=== PATIENT | female | born 1965 | race Caucasian/White ===

== ENCOUNTER 2020-11-03 15:20 | Emergency (ER) | payer OTHER ==
[~2020-11-03] VITALS: Ht 162.6 cm; Wt 62.9 kg
[2020-11-03 15:46] VITALS: BP 181/129
--- NOTE | 2020-11-03 16:54 | NUR ---
LBD TEACHER: PT AMBULATORY TO ROOM FROM TRIAGE
--- NOTE | 2020-11-03 17:04 | NUR ---
Dr. Ramos at bedside to evaluate pt.
[2020-11-03] MEDS ORDERED: PLEASE ENTER ALLERGIES MC SCH (17:30)
== END 2020-11-03 17:34 | disposition home or self-care (01) ==
LOC: ED 17:05
DX: L20.84 Intrinsic (allergic) eczema (principal); I10 Essential (primary) hypertension
CPT/HCPCS: 99283; J7512

== ENCOUNTER 2020-11-17 10:12 | Emergency (ER) | payer OTHER ==
[~2020-11-17] VITALS: Ht 162.6 cm; Wt 62.0 kg
--- NOTE | 2020-11-17 10:33 | NUR ---
4d OF EYE PAIN, RASH, DOUBLE VISION. as well as rash to right hip. SEEN LAST WEEK FOR RASH TO WHOLE FACE without above complications Visual acuity completed in triage
[2020-11-17 11:58] VITALS: BP 155/95
== END 2020-11-17 12:00 | disposition home or self-care (01) ==
LOC: ED 11:50
DX: L20.9 Atopic dermatitis, unspecified (principal); F17.200 Nicotine dependence, unspecified, uncomplicated; I10 Essential (primary) hypertension; Z88.8 Allergy status to other drugs, medicaments and biological substances
CPT/HCPCS: 99283; J7512